=== PATIENT | male | born 1965 | race Caucasian/White ===

== ENCOUNTER → 2020-10-12 15:00 | Outpatient (CLI) | payer OTHER, SELFPAY ==
[2020-10-12 17:05] LABS: Uric Acid 7.6 mg/dL (3.5-8.5)
== END ==
PROVIDERS: Family Provider Family Medicine; PCP Family Medicine; Referring Provider Podiatrist; Visit Provider Podiatrist
DX: M79.672 Pain in left foot (principal)
CPT/HCPCS: 36415; 84550

== ENCOUNTER → 2021-01-18 10:12 | Outpatient (CLI) | payer OTHER, SELFPAY ==
--- NOTE | 2021-01-18 | DI.CT.S_ITS ---
PROCEDURE: CT UE RT WO CON INDICATIONS: Pain in right shoulder TECHNIQUE: Noncontrast 1-1.5 mm thick sections acquired from the acromioclavicular joint to the inferior scapula, with coronal and sagittal reformatting. COMPARISON: Reference is made to the MR SHOULDER WITHOUT CONTRAST, 03/04/2014, 8:35. FINDINGS: Image quality: Excellent. Bones: No acute, displaced fracture or dislocation. Moderate to advanced degenerative changes of the glenohumeral articulation with vacuum phenomena, joint space loss, and fibrocystic degenerative change. Large ridge osteophyte extends from the humeral head. The humeral head has a flattened contour. Small area of fibrocystic changes seen in the acromion. Soft tissues: No significant abnormality. IMPRESSION: 1. Right shoulder arthrosis as detailed above without acute osseous abnormality. Dictated by: Ariel Mcdaniel M.D. on 01/18/2021 at 10:35 Approved by: Ariel Mcdaniel M.D. on 01/18/2021 at 11:31
== END ==
PROVIDERS: Family Provider Family Medicine; PCP Family Medicine; Referring Provider Orthopaedic Surgery; Visit Provider Orthopaedic Surgery
DX: M25.511 Pain in right shoulder (principal); M19.011 Primary osteoarthritis, right shoulder
CPT/HCPCS: 73200

== ENCOUNTER → 2021-02-02 10:24 | Outpatient (CLI) | payer OTHER, SELFPAY ==
[2021-02-02 11:36] LABS: Alanine Aminotransferase 25 IU/L (<50); Albumin 4.3 g/dL (3.5-5.0); Albumin Globulin Ratio 1.4 (1.0-2.8); Alkaline Phosphatase 84 U/L (38-126); Aspartate Aminotransferase 21 IU/L (17-59); BUN Creatinine Ratio 17.5 (6-22); Bilirubin Total 0.3 mg/dL (0.2-1.3); Blood Urea Nitrogen 17 mg/dL (9-20); Calcium 9.3 mg/dL (8.4-10.2); Carbon Dioxide 24 mmol/L (22-32); Chloride 107 mmol/L (98-107); Estimated Glomerular Filt Rate > 60.0 mL/min (>60); Globulin 3.1 g/dL (1.7-4.1); Glucose 111 mg/dL (70-100); HEMOLYSIS < 15 (0-50); Potassium 4.3 mmol/L (3.4-5.1); Sodium 140 mmol/L (137-145); Total Protein 7.4 g/dL (6.3-8.2); Uric Acid 7.2 mg/dL (3.5-8.5)
== END ==
PROVIDERS: Family Provider Family Medicine; PCP Family Medicine; Referring Provider Podiatrist; Visit Provider Podiatrist
DX: Z01.812 Encounter for preprocedural laboratory examination (principal); E79.0 Hyperuricemia without signs of inflammatory arthritis and tophaceous disease
CPT/HCPCS: 36415; 80053; 84550

== ENCOUNTER 2021-04-22 13:04 | Emergency (ER) | payer OTHER, SELFPAY ==
[2021-04-22 13:30] VITALS: BP 165/127; PULSE 73; RESP 17; TEMP 36.1; O2SAT 97; BMI 34.4
[2021-04-22] MEDS: KETOROLAC 30 MG/ML VIAL IM (16:29)
[2021-04-22] MEDS: methocarbamoL 500 MG TABLET PO (16:29)
--- NOTE | 2021-04-22 17:23 | ED_ITS ---
HPI - Abdominal Pain <KARLA Rainey - Last Filed: 04/22/21 17:32> General Chief Complaint: Abdominal Pain Stated Complaint: 2 Abd Hernias, Severe Pain Time Seen by Provider: 04/22/21 15:42 Source: patient Mode of arrival: Ambulatory History of Present Illness HPI narrative: 55-year-old male presents to the emergency department for bilateral inguinal pain from 2 hernias which he reports was barely visualized on ultrasound yesterday. Patient reports that his hernias were difficult to find on ultrasound, he cannot palpate them, there was no bowel incarceration, necrosis, for perforation noted. Images were not available to review at this time, patient denies any fever, other abdominal pain, changes to his urination, difficulty urinating, difficulty having a bowel movement, nausea or vomiting. Patient is seeking pain control and hoping to ?have surgery sooner than later so he is trying to make it a big deal so he can have this approved.Patient denies any blood in his urine or stool. Related Data Home Medications Medication Instructions Recorded Confirmed BIOTIN/CA/CA PANTOTHENATE/CR 1 tab PO QDAY #0 02/28/11 04/27/21 (#CENTRUM) Vitamin E Succinate (#VITAMIN E) 100 iu PO QDAY #0 02/28/11 04/27/21 Previous Rx's Medication Instructions Recorded methylprednisolone 4 mg tablets in 21 tab PO SEE INSTRUCTIONS #1 pac 02/07/17 a dose pack ondansetron 4 mg disintegrating 4 mg PO BID PRN #10 tab 12/02/18 tablet methocarbamol 500 mg tablet See Rx Instructions PO Q6-8H PRN 04/17/21 #40 tab ketorolac 10 mg tablet 10 mg PO TID PRN 10 Days #20 tab 04/22/21 methocarbamol 500 mg tablet 500 mg PO Q8H PRN #20 tab 04/22/21 Allergies Allergy/AdvReac Type Severity Reaction Status Date / Time No Known Drug Allergies Allergy Verified 04/27/21 14:41 Review of Systems <KARLA Rainey - Last Filed: 04/22/21 17:32> Review of Systems Narrative: General: denies fever, chills Head/Neck: denies headache, neck pain Eyes: denies visual changes, eye pain Cardio: denies chest pain, palpitations Respiratory: denies shortness of breath, cough GI: endorses bilateral inguinal pain, denies abdominal pain, nausea, vomiting, or diarrhea : denies dysuria, hematuria MSK: denies joint pain, muscle weakness Skin: denies rash, itching Neuro: denies numbness, tingling Patient History <KARLA Rainey - Last Filed: 04/22/21 17:32> Social History Smoking Status: Never smoker Smoking Status: Never smoker alcohol intake frequency: a few times a week Substance Use Type: does not use Exam <KARLA Rainey - Last Filed: 04/22/21 17:32> Narrative Exam Narrative: Independently reviewed vitals signs and nursing notes. General: Awake, alert, nontoxic, no cardiorespiratory distress Head/Neck: Atraumatic, neck full range of motion Eyes: EOMI, conjunctiva normal Nose: nares patent, no rhinorrhea Mouth/Throat: moist mucus membranes Cardio: Regular rate and rhythm, no peripheral edema Respiratory: respirations unlabored without wheezing, stridor, or rales. No retractions. GI: Abdomen soft, nontender, no hernias palpated, nontender abdomen, low suspicion for peritonitis MSK: Moves all extremities, neurovascularly intact Skin: Normal capillary refill, no rash Neuro: Normal speech and cognition, normal gait Initial Vital Signs Initial Vital Signs: Vital Signs Temperature 97.0 F L 04/22/21 13:30 Pulse Rate 73 04/22/21 13:30 Respiratory Rate 17 04/22/21 13:30 Blood Pressure 165/127 H 04/22/21 13:30 Pulse Oximetry 97 04/22/21 13:30 <Norm Fenton DO - Last Filed: 04/29/21 04:57> Initial Vital Signs Initial Vital Signs: Vital Signs Temperature 97.0 F L 04/22/21 13:30 Pulse Rate 73 04/22/21 13:30 Respiratory Rate 17 04/22/21 13:30 Blood Pressure 165/127 H 04/22/21 13:30 Pulse Oximetry 97 04/22/21 13:30 Course <KARLA Rainey Last Filed: 04/22/21 17:32> Orders Ordered: Discontinued Medications Ketorolac Tromethamine (Ketorolac 30 Mg/Ml Vial) 30 mg IM NOW ONE Stop: 04/22/21 16:22 Last Admin: 04/22/21 16:29 Dose: 30 mg Documented by: AVNI Methocarbamol (Methocarbamol 500 Mg Tablet) 500 mg PO NOW ONE Stop: 04/22/21 16:22 Last Admin: 04/22/21 16:29 Dose: 500 mg Documented by: AVNI Vital Signs Vital signs: Vital Signs - 8 hr 04/22/21 13:30 Temperature 97.0 F L Pulse Rate 73 Respiratory Rate 17 Blood Pressure 165/127 H Pulse Oximetry 97 <Norm Fenton DO - Last Filed: 04/29/21 04:57> Orders Ordered: Discontinued Medications Ketorolac Tromethamine (Ketorolac 30 Mg/Ml Vial) 30 mg IM NOW ONE Stop: 04/22/21 16:22 Last Admin: 04/22/21 16:29 Dose: 30 mg Documented by: AVNI Methocarbamol (Methocarbamol 500 Mg Tablet) 500 mg PO NOW ONE Stop: 04/22/21 16:22 Last Admin: 04/22/21 16:29 Dose: 500 mg Documented by: AVNI Vital Signs Vital signs: Vital Signs - 8 hr 04/22/21 13:30 Temperature 97.0 F L Pulse Rate 73 Respiratory Rate 17 Blood Pressure 165/127 H Pulse Oximetry 97 MDM - Abdominal Pain <KARLA Rainey - Last Filed: 04/22/21 17:32> MDM Narrative Medical decision making narrative: 55-year-old male presents to the emergency department complaining of pain from his right shoulder from months ago, and pain in his abdomen from to [place] hernias which were found on ultrasound yesterday without records available to review. There are no palpable hernias, very low suspicion for any incarcerated bowel, vessel, peritonitis, no lymphadenopathy, nontender abdominal exam, without any color change or signs of infection. Patient was instructed to use an abdominal binder and he reports that it has been helpful to have snug pants on as this is more comfortable. Patient is nontoxic appearing, recommended to follow-up with general surgery as already referred. Informed that due to the COVID restrictions he may not be able to have surgery if this is indicated at this time. Patient was also informed to have his records sent over from where he had this ultrasound yesterday. Patient tells me that he is trying to accelerate his claim so that he can get treated sooner so that is why he came to the emergency department to make it seem like it was a big deal because of his pain. Patient is appropriate and amenable to discharge home. Vital signs are stable on repeat examination is unremarkable. Patient has been informed of results. Patient has been given strict return to ER precautions for any new or worsening symptoms. Patient understands to follow up closely with outpatient providers as instructed. Patient understands plan and agrees to discharge home. All questions and concerns answered at this time. Discharge Plan Departure Patient Disposition: Home Clinical Impression: Inguinal hernia Qualifiers: Obstruction and gangrene presence: without obstruction or gangrene Laterality: bilateral Recurrence: not specified as recurrent Qualified Code(s): K40.20 - Bilateral inguinal hernia, without obstruction or gangrene, not specified as recurrent Instructions: Groin Hernia -- Adult Activity Restrictions/Additional Instructions: *You have been diagnosed with inguinal hernias visualized on ultrasound. I have referred you to General surgery again for an evaluation of these. For your shoulder and for your abdomen, please use the Robaxin as needed for muscle spasm and crampy feeling, and the anti-inflammatories for general soreness. Please try wearing an abdominal binder to help with the pain exacerbations. 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 I hope that you start feeling better soon, sorry for your injury and for your pain. Please follow-up with your primary care provider about this, they will help you with the documentation needed to advance your surgery request. *What to do: *Please continue to take your regular medications as directed. [ x] New medication prescriptions sent to your pharmacy: [ ] [ ] New medication written as a paper prescription [ ] No new medications given *Please follow up with your primary care provider in 2-3 days, call for an appointment. Let them know you were seen in the Emergency Department and that we ask that you be seen in follow up. We will electronically transmit a record of today's note if your PCP is in our system *If you do not have a primary care provider please contact [facility] Resource line at [phone]. They will ask some questions about your medical history and help get you set up with a doctor in the community. *Return to Emergency Department if you should have any new, worsening or concerning symptoms, such as [fever greater than 101F, chills, worsening pain, persistent vomiting or other bothersome symptoms] Prescriptions: New methocarbamol 500 mg tablet 500 mg PO Q8H PRN (Reason: muscle spasm) Qty: 20 0RF ketorolac 10 mg tablet 10 mg PO TID PRN (Reason: pain) 10 Days Qty: 20 0RF No Action ondansetron 4 mg tablet,disintegrating 4 mg PO BID PRN (Reason: nausea and vomiting) Qty: 10 0RF methocarbamol 500 mg tablet See Rx Instructions PO Q6-8H PRN (Reason: muscle spasm) Qty: 40 0RF Rx Instructions: 2-3 tablets PO every 6-8 hours PRN; BIOTIN/CA/CA PANTOTHENATE/CR (#CENTRUM) 1 tab PO QDAY Qty: 0 0RF Vitamin E Succinate (#VITAMIN E) 100 iu PO QDAY Qty: 0 0RF methylprednisolone 4 MG tablets,dose pack 21 tab PO SEE INSTRUCTIONS Qty: 1 0RF Referrals: Fabian Hayden MD [Primary Care Provider] - Valente Tee MD [Physician] - 5-7 days <Norm Fenton DO - Last Filed: 04/29/21 04:57> [facility] I was immediately available in the department for consultation. This documentation has been reviewed and I agree with assessment and plan. Supervised by Norm Fenton DO
== END 2021-04-22 16:38 | disposition home or self-care (01) ==
PROVIDERS: Emergency Provider Nurse Practitioner Critical Care Medicine; Family Provider Family Medicine; PCP Family Medicine
DX: K40.20 Bilateral inguinal hernia, without obstruction or gangrene, not specified as recurrent (principal)
CPT/HCPCS: 96372; 99283; J1885

== ENCOUNTER → 2022-07-19 15:50 | Outpatient (CLI) | payer OTHER, SELFPAY ==
[2022-07-19 16:47] LABS: Influenza A - CEPHEID Flu A NEGATIVE (NEGATIVE); Influenza B - CEPHEID Flu B NEGATIVE (NEGATIVE); Respiratory Syncytial Virus Negative (Negative)
[2022-07-19 16:59] LABS: COVID-19 CEPHEID 4-PLEX PCR Negative (Negative)
== END ==
PROVIDERS: Family Provider Family Medicine; PCP Family Medicine; Visit Provider Physician Assistant
DX: N39.0 Urinary tract infection, site not specified (principal); J06.9 Acute upper respiratory infection, unspecified
CPT/HCPCS: 0241U; 87086

== ENCOUNTER 2022-07-19 16:32 | Emergency (ER) | payer OTHER, SELFPAY ==
[2022-07-19] VITALS (11 sets, daily range): BP systolic 100–159; BP diastolic 61–92; PULSE 65–77; RESP 15–18; TEMP 37.2–39.5; O2SAT 94–98; BMI 34.2
[2022-07-19] MEDS: ACETAMINOPHEN 325 MG TABLET 975 MG PO (16:42)
[2022-07-19] MEDS: SODIUM CHLORIDE 0.9% 868 ML IV (17:20)
[2022-07-19 17:27] LABS: Bacteria Urine Occasional (0-1); Culture Indicated Urine Cult Not Indicated; RBC Urine 10-30/HPF (0-5/HPF); WBC Urine 0-1/HPF (0-5/HPF)
[2022-07-19] MEDS: KETOROLAC 30 MG/ML VIAL 15 MG IV (17:40)
[2022-07-19 17:42] LABS: Add Manual Diff / Slide Review NO; Basophils Absolute Auto 0 /uL (0-100); Basophils Percent Auto 0.3 % (0-2); Eosinophils Absolute Auto 100 /uL (0-450); Eosinophils Percent Auto 0.7 % (2-4); Hemoglobin 15.5 g/dL (13.5-17.5); Lymphocytes Absolute Auto 1400 /uL (1100-4500); Lymphocytes Percent Auto 10.7 % (25-40); Mean Corpuscular HGB Conc 35.2 % (30-36); Mean Corpuscular Hemoglobin 31.7 PG (26-34); Mean Corpuscular Volume 89.9 fL (80-100); Monocytes Absolute Auto 1100 /uL (0-900); Monocytes Percent Auto 8.7 % (3-14); Neutrophils Absolute Auto 10100 /uL (1500-7000); Neutrophils Percent Auto 79.6 % (50-75); Platelet Count 130 X10^3/uL (150-400); Red Blood Cell Count 4.89 X10^6/uL (4.5-5.9); Red Cell Distribution Width 13.6 % (11.6-14.8); White Blood Cell Count 12.7 X10^3/uL (4.5-11.0)
[2022-07-19 17:53] LABS: Alanine Aminotransferase 27 IU/L (<50); Albumin 4.4 g/dL (3.5-5.0); Albumin Globulin Ratio 1.1 (1.0-2.8); Alkaline Phosphatase 64 U/L (38-126); Aspartate Aminotransferase 26 IU/L (17-59); BUN Creatinine Ratio 15.2 (6-22); Blood Urea Nitrogen 17 mg/dL (9-20); Calcium 9.2 mg/dL (8.4-10.2); Carbon Dioxide 20 mmol/L (22-32); Chloride 101 mmol/L (98-107); Estimated Glomerular Filt Rate > 60 mL/min (>60); Glucose 130 mg/dL (70-100); HEMOLYSIS 17 (0-50); Potassium 3.9 mmol/L (3.4-5.1); Sodium 132 mmol/L (137-145); Total Protein 8.4 g/dL (6.3-8.2)
--- NOTE | 2022-07-19 18:19 | DI.CT.S_ITS ---
PROCEDURE: CT ABDOMEN PELVIS W CON INDICATIONS: ?hernia TECHNIQUE: After the administration of intravenous contrast, axial sections acquired from the lung bases to the pubic symphysis. Coronal and sagittal reformats were performed. For radiation dose reduction, the following was used: automated exposure control, adjustment of mA and/or kV according to patient size. COMPARISON: [facility] Ultrasound, US, US HERNIA INGUINAL, 04/21/2021, 15:20.On CT FINDINGS: Image quality: Excellent. Lung bases: Small consolidative opacity is seen at the medial basilar segment of the right lower lobe. Heart: No significant findings. ABDOMEN: Liver: Unremarkable. Gallbladder: Unremarkable. Biliary ducts: Unremarkable. Pancreas: Unremarkable. Spleen: Unremarkable. Adrenal Glands: Unremarkable. Kidneys and Ureters: Simple appearing cysts are seen in both kidneys. Stomach and Bowel: Multiple diverticula are seen in the colon without signs of acute diverticulitis. Small bowel loops and stomach are unremarkable. Appendix is not visualized, but there are no signs of acute appendicitis. Peritoneum: No abnormal intraperitoneal fluid. No free air. Ventral Wall: Small fat containing periumbilical hernia. Abdominal Nodes: No retroperitoneal or mesenteric adenopathy by size criteria. Vessels: Aorta and inferior vena cava are normal in size. PELVIS: Pelvic Organs: Unremarkable. Bladder: Unremarkable. Pelvic Nodes: No enlarged lymph nodes. Miscellaneous: Previously seen inguinal hernias are not redemonstrated. Bones: Degenerative changes are seen at the lumbosacral junction. IMPRESSION: 1. No acute abnormality is seen in the abdomen or pelvis. No inguinal hernia or signs of bowel obstruction. 2. Small opacity in the right lung base is suspicious for pneumonia, versus aspiration or atelectasis. 3. Colonic diverticulosis without signs of acute diverticulitis. Approved by: Min Glaser M.D. on 07/19/2022 at 19:28
--- NOTE | 2022-07-19 18:21 | DI.RAD.S_ITS ---
PROCEDURE: XR CHEST 2V INDICATIONS: sepsis TECHNIQUE: 2 views of the chest were acquired. COMPARISON: None. FINDINGS: Surgical changes and devices: None. Lungs and pleura: Triangular opacity is seen at the medial anterior right lung base. No pleural effusions or pneumothorax. Mediastinum: Mediastinal contours are normal. Heart size is normal. Bones and chest wall: No suspicious bony abnormalities. Soft tissues appear unremarkable. IMPRESSION: Right basilar opacity is suspicious for pneumonia. Approved by: Min Glaser M.D. on 07/19/2022 at 19:21
[2022-07-19] MEDS: PIPERACILLIN/TAZO 4.5 GM in SODIUM CHLORIDE 0.9% 100 ML IV (18:38)
--- NOTE | 2022-07-19 18:43 | ED.MALEGU ---
HPI - Male Genitourinary <Gray Grace PA-C - Last Filed: 07/19/22 20:27> General Chief complaint: Urogenital-Male Stated complaint: sent by [facility] for blood in urine Time Seen by Provider: 07/19/22 17:22 Source: patient Mode of arrival: Ambulatory History of Present Illness HPI Narrative: 57-year-old male with past medical history inguinal hernia presents to the ED for 4 days of fever, abdominal pain, diarrhea, hematuria. Patient states his symptoms started 4 days ago with fevers, all-over body aches, diarrhea. Patient states he is had hematuria for 2 days. Patient states that he has not had more than 1 episode of diarrhea a day. Also endorses flatulence. Patient states that he has been coughing, which has caused some discomfort in the area of his hernia on the right side. Patient is also complaining of some left testicular discomfort. Patient denies chest pain, shortness of breath, rhinorrhea, sore throat, vomiting, dysuria, lightheadedness, dizziness, syncope. Patient states he was scheduled to have hernia surgery a couple of years ago during [facility], but it was canceled due to all elective surgeries being canceled. Related Data Home Medications Medication Instructions Recorded Confirmed BIOTIN/CA/CA PANTOTHENATE/CR 1 tab PO QDAY ##0 02/28/11 04/27/21 (#CENTRUM) Vitamin E Succinate (#VITAMIN E) 100 iu PO QDAY ##0 02/28/11 04/27/21 Previous Rx's Medication Instructions Recorded methylprednisolone 4 mg tablets in 21 tab PO SEE INSTRUCTIONS ##1 02/07/17 a dose pack ondansetron 4 mg disintegrating 4 mg PO BID PRN nausea and 12/02/18 tablet vomiting #10 tabs methocarbamol 500 mg tablet See Rx Instructions PO Q6-8H PRN 04/17/21 muscle spasm #40 tabs methocarbamol 500 mg tablet 500 mg PO Q8H PRN muscle spasm #20 04/22/21 tabs azithromycin 250 mg tablet See Rx Instructions PO .COMPLEX #6 07/19/22 (Zithromax Z-Lele) tabs Allergies Allergy/AdvReac Type Severity Reaction Status Date / Time No Known Drug Allergies Allergy Verified 07/19/22 16:35 Review of Systems <Gray Grace PA-C - Last Filed: 07/19/22 20:27> Review of Systems ROS Unobtainable: All systems reviewed & are unremarkable except as noted in HPI and below Constitutional Constitutional: Reports body ache(s), Denies chills, Reports fatigue, Reports fever(s), Denies frequent falls, Denies lethargy and Denies weakness Eyes Eyes: Denies change in vision, Denies eye discharge, Denies irritation and Denies loss of vision ENT Ears, Nose, Mouth, and Throat: Denies change in voice, Denies dizziness, Denies neck pain, Denies sore throat and Denies throat swelling Cardiovascular Cardiovascular: Denies chest pain, Denies irregular heart rhythm, Denies lightheadedness, Denies palpitations, Denies dyspnea, Denies dyspnea on exertion and Denies orthopnea Respiratory Respiratory: Reports cough, Denies dyspnea, Denies dyspnea on exertion and Denies wheezing Gastrointestinal Gastrointestinal: Reports abdominal pain, Denies change in bowel habits, Reports diarrhea, Reports nausea and Denies vomiting Genitourinary Genitourinary: Reports hematuria, Denies flank pain, Denies urinary incontinence and Denies urinary urgency Musculoskeletal Musculoskeletal: Denies back pain, Denies muscle weakness, Denies neck pain, Denies numbness and Denies tingling Integumentary/Breasts Skin/Breast: Denies pruritus, Denies erythema, Denies rash and Denies wounds Neurologic Neurologic: Denies behavioral changes, Denies confusion, Denies dizziness, Denies frequent falls, Denies loss of vision, Denies numbness, Denies tingling and Denies weakness Psychiatric Psychiatric: Denies anxiety, Denies behavioral changes, Denies confusion, Denies depression, Denies homicidal ideation and Denies suicidal ideation Endocrine Endocrine: Reports fatigue, Denies flushing and Denies palpitations Hematologic/Lymphatic Hematologic/Lymphatic: Denies easy bruising Allergic/Immunologic Allergic/Immunologic: Denies urticaria, Denies throat swelling and Denies wheezing Patient History <Gray Grace PA-C - Last Filed: 07/19/22 20:27> Medical History History of hepatitis HTN (hypertension) Surgical History Hx of appendectomy (1983) Social History household members: spouse Smoking Status: Former smoker alcohol intake: current Smoking Status: Former smoker alcohol intake frequency: a few times a month Substance Use Type: does not use Exam <Gray Grace PA-C - Last Filed: 07/19/22 20:27> Narrative Exam Narrative: Const General:?cooperative, healthy appearing and comfortable HENMT Head:?normal to inspection Ears:?hearing grossly normal bilaterally Nose:?external nose normal Face and sinus:?normal facial exam and sinuses nontender Mouth:?oral mucosae normal Throat:?posterior oropharynx normal Eyes General:?appearance normal, both eyes and all related structures Neck Neck:?normal visual inspection and no lymphadenopathy noted Resp Effort & Inspection:?normal respiratory effort Auscultation:?clear to auscultation bilaterally Cardio Rate:?regular rate Rhythm:?regular rhythm GI Abdomen is soft, nondistended, nontender to palpation. Normal on exam Neuro General:?patient alert, patient awake and patient oriented x3 Initial Vital Signs Initial Vital Signs: Vital Signs Temperature 103.1 F H 07/19/22 16:35 Pulse Rate 74 07/19/22 16:35 Respiratory Rate 15 07/19/22 16:35 Blood Pressure 159/92 H 07/19/22 16:35 Pulse Oximetry 95 07/19/22 16:35 Oxygen Delivery Method Room Air 07/19/22 16:35 <Yun Alonso MD - Last Filed: 07/20/22 01:46> Initial Vital Signs Initial Vital Signs: Vital Signs Temperature 103.1 F H 07/19/22 16:35 Pulse Rate 74 07/19/22 16:35 Respiratory Rate 15 07/19/22 16:35 Blood Pressure 159/92 H 07/19/22 16:35 Pulse Oximetry 95 07/19/22 16:35 Oxygen Delivery Method Room Air 07/19/22 16:35 Course <Gray Grace PA-C - Last Filed: 07/19/22 20:27> Orders Ordered: ED Orders 07/19/22 17:32 CBC Auto Diff [Complete Blood Count AUTO DIFF] Stat CMP [Comprehensive Metabolic Panel] Stat Lactate (Lactic Acid) Stat PT [Prothrombin Time INR] Stat PTT Partial Thromboplastin [place] Stat Procalcitonin Stat 07/19/22 17:50 Blood Culture Stat 07/19/22 18:19 CT abdomen pelvis w con Stat 07/19/22 18:21 CXR [XR chest 2V] Stat 07/19/22 18:42 Covid-19 + FLU A/B + RSV - PCR Stat Discontinued Medications Acetaminophen (Acetaminophen 325 Mg Tablet) 975 mg PO NOW ONE Stop: 07/19/22 16:40 Last Admin: 07/19/22 16:42 Dose: 975 mg Documented By: VINICIO Sodium Chloride (Normal Saline 0.9%) 1,000 mls @ 1,000 mls/hr IV BOLUS ONE Stop: 07/19/22 18:21 Last Admin: 07/19/22 18:21 Dose: Not Given Documented By: EDIE Piperacillin Sod/Tazobactam (Sod 4.5 gm/ Sodium Chloride) 100 mls @ 200 mls/hr IV NOW ONE Stop: 07/19/22 18:15 Last Infusion: 07/19/22 19:13 Dose: 0 mls/hr Documented By: Admin: 07/19/22 18:38 Dose: 200 mls/hr Documented By: EDIE Sodium Chloride (Normal Saline 0.9%) 2,604 mls @ 868 mls/hr 30 ml/kg infuse over 3 hr (2604 ml) IV NOW ONE Stop: 07/19/22 21:17 Last Infusion: 07/19/22 20:29 Dose: 0 mls/hr Documented By: Admin: 07/19/22 17:20 Dose: 868 mls/hr Documented By: EDIE Ibuprofen (Ibuprofen 400 Mg Tablet) 800 mg PO NOW ONE Stop: 07/19/22 16:40 Last Admin: 07/19/22 17:40 Dose: Not Given Documented By: CTS Ketorolac Tromethamine (Ketorolac 30 Mg/Ml Vial) 15 mg IV NOW ONE Stop: 07/19/22 17:23 Last Admin: 07/19/22 17:40 Dose: 15 mg Documented By: CTS Vital Signs Vital signs: Vital Signs - 8 hr 07/19/22 18:00 07/19/22 19:02 07/19/22 18:43 Temperature 99 F Pulse Rate 74 65 Respiratory Rate Blood Pressure Pulse Oximetry 96 98 07/19/22 18:44 07/19/22 18:44 07/19/22 19:00 Temperature Pulse Rate 67 Respiratory Rate Blood Pressure 100/61 108/68 Pulse Oximetry 98 07/19/22 19:00 07/19/22 19:30 07/19/22 19:30 Temperature Pulse Rate 65 66 Respiratory Rate Blood Pressure 107/76 Pulse Oximetry 96 95 07/19/22 20:00 07/19/22 20:00 Temperature Pulse Rate 71 Respiratory Rate 18 Blood Pressure 107/70 Pulse Oximetry 94 <Yun Alonso MD - Last Filed: 07/20/22 01:46> Orders Ordered: ED Orders 07/19/22 17:32 CBC Auto Diff [Complete Blood Count AUTO DIFF] Stat CMP [Comprehensive Metabolic Panel] Stat Lactate (Lactic Acid) Stat PT [Prothrombin Time INR] Stat PTT Partial Thromboplastin [place] Stat Procalcitonin Stat 07/19/22 17:50 Blood Culture Stat 07/19/22 18:19 CT abdomen pelvis w con Stat 07/19/22 18:21 CXR [XR chest 2V] Stat 07/19/22 18:42 Covid-19 + FLU A/B + RSV - PCR Stat Discontinued Medications Acetaminophen (Acetaminophen 325 Mg Tablet) 975 mg PO NOW ONE Stop: 07/19/22 16:40 Last Admin: 07/19/22 16:42 Dose: 975 mg Documented By: VINICIO Sodium Chloride (Normal Saline 0.9%) 1,000 mls @ 1,000 mls/hr IV BOLUS ONE Stop: 07/19/22 18:21 Last Admin: 07/19/22 18:21 Dose: Not Given Documented By: EDIE Piperacillin Sod/Tazobactam (Sod 4.5 gm/ Sodium Chloride) 100 mls @ 200 mls/hr IV NOW ONE Stop: 07/19/22 18:15 Last Infusion: 07/19/22 19:13 Dose: 0 mls/hr Documented By: Admin: 07/19/22 18:38 Dose: 200 mls/hr Documented By: EDIE Sodium Chloride (Normal Saline 0.9%) 2,604 mls @ 868 mls/hr 30 ml/kg infuse over 3 hr (2604 ml) IV NOW ONE Stop: 07/19/22 21:17 Last Infusion: 07/19/22 20:29 Dose: 0 mls/hr Documented By: Admin: 07/19/22 17:20 Dose: 868 mls/hr Documented By: EDIE Ibuprofen (Ibuprofen 400 Mg Tablet) 800 mg PO NOW ONE Stop: 07/19/22 16:40 Last Admin: 07/19/22 17:40 Dose: Not Given Documented By: EDIE Ketorolac Tromethamine (Ketorolac 30 Mg/Ml Vial) 15 mg IV NOW ONE Stop: 07/19/22 17:23 Last Admin: 07/19/22 17:40 Dose: 15 mg Documented By: EDIE Vital Signs Vital signs: Vital Signs - 8 hr 07/19/22 18:00 07/19/22 19:02 07/19/22 18:43 Temperature 99 F Pulse Rate 74 65 Respiratory Rate Blood Pressure Pulse Oximetry 96 98 07/19/22 18:44 07/19/22 18:44 07/19/22 19:00 Temperature Pulse Rate 67 Respiratory Rate Blood Pressure 100/61 108/68 Pulse Oximetry 98 07/19/22 19:00 07/19/22 19:30 07/19/22 19:30 Temperature Pulse Rate 65 66 Respiratory Rate Blood Pressure 107/76 Pulse Oximetry 96 95 07/19/22 20:00 07/19/22 20:00 Temperature Pulse Rate 71 Respiratory Rate 18 Blood Pressure 107/70 Pulse Oximetry 94 MDM - Male Genitourinary <Gray Grace PA-C - Last Filed: 07/19/22 20:27> Lab Data 07/19/22 17:32 07/19/22 17:32 Labs: Lab Results 07/19/22 07/19/22 07/19/22 Range/Units 16:12 17:32 17:32 WBC 12.7 H (4.5-11.0) X10^3/uL RBC 4.89 (4.5-5.9) X10^6/uL Hgb 15.5 (13.5-17.5) g/dL Hct 44.0 (41-53) % MCV 89.9 (80-100) fL MCH 31.7 (26-34) PG MCHC 35.2 (30-36) % RDW 13.6 (11.6-14.8) % Plt Count 130 L (150-400) X10^3/uL Neut % (Auto) 79.6 H (50-75) % Lymph % (Auto) 10.7 L (25-40) % [place] % (Auto) 8.7 (3-14) % Eos % (Auto) 0.7 L (2-4) % Baso % (Auto) 0.3 (0-2) % Neut # (Auto) 30439 H (6954-4460) /uL Lymph # (Auto) 1400 (4071-4952) /uL [place] # (Auto) 1100 H (0-900) /uL Eos # (Auto) 100 (0-450) /uL Baso # (Auto) 0 (0-100) /uL PT (10.1-12.7) SECONDS INR (0.9-1.3) APTT (26-36) SECONDS Sodium 132 L (137-145) mmol/L Potassium 3.9 (3.4-5.1) mmol/L Chloride 101 (98-107) mmol/L Carbon Dioxide 20 L (22-32) mmol/L BUN 17 (9-20) mg/dL Creatinine 1.12 (0.66-1.25) mg/dL Estimated GFR > 60 (>60) mL/min BUN/Creatinine Ratio 15.2 (6-22) Glucose 130 H (70-100) mg/dL Lactate (0.7-2.1) mmol/L Calcium 9.2 (8.4-10.2) mg/dL Total Bilirubin 1.0 (0.2-1.3) mg/dL AST 26 (17-59) IU/L ALT 27 (<50) IU/L Alkaline Phosphatase 64 (38-126) U/L Total Protein 8.4 H (6.3-8.2) g/dL Albumin 4.4 (3.5-5.0) g/dL Globulin 4.0 (1.7-4.1) g/dL Albumin/Globulin Ratio 1.1 (1.0-2.8) Procalcitonin (<0.5) ng/mL Urine RBC 10-30/hpf H (0-5/HPF) Urine WBC 0-1/hpf (0-5/HPF) Urine Bacteria Occasional (0-1) (None) Ur Culture Indicated? Cult not indicated SARS-CoV-2 (PCR) (Negative) Influenza A (RT-PCR) (NEGATIVE) Influenza B (RT-PCR) (NEGATIVE) RSV (PCR) (Negative) 04/08/0707/19/22 07/19/22 Range/Units 17:32 17:32 17:32 WBC (4.5-11.0) X10^3/uL RBC (4.5-5.9) X10^6/uL Hgb (13.5-17.5) g/dL Hct (41-53) % MCV (80-100) fL MCH (26-34) PG MCHC (30-36) % RDW (11.6-14.8) % Plt Count (150-400) X10^3/uL Neut % (Auto) (50-75) % Lymph % (Auto) (25-40) % [place] % (Auto) (3-14) % Eos % (Auto) (2-4) % Baso % (Auto) (0-2) % Neut # (Auto) (3601-9671) /uL Lymph # (Auto) (5475-0789) /uL [place] # (Auto) (0-900) /uL Eos # (Auto) (0-450) /uL Baso # (Auto) (0-100) /uL PT 14.9 H (10.1-12.7) SECONDS INR 1.3 (0.9-1.3) APTT 29 (26-36) SECONDS Sodium (137-145) mmol/L Potassium (3.4-5.1) mmol/L Chloride (98-107) mmol/L Carbon Dioxide (22-32) mmol/L BUN (9-20) mg/dL Creatinine (0.66-1.25) mg/dL Estimated GFR (>60) mL/min BUN/Creatinine Ratio (6-22) Glucose (70-100) mg/dL Lactate 1.0 (0.7-2.1) mmol/L Calcium (8.4-10.2) mg/dL Total Bilirubin (0.2-1.3) mg/dL AST (17-59) IU/L ALT (<50) IU/L Alkaline Phosphatase (38-126) U/L Total Protein (6.3-8.2) g/dL Albumin (3.5-5.0) g/dL Globulin (1.7-4.1) g/dL Albumin/Globulin Ratio (1.0-2.8) Procalcitonin 0.08 (<0.5) ng/mL Urine RBC (0-5/HPF) Urine WBC (0-5/HPF) Urine Bacteria (None) Ur Culture Indicated? SARS-CoV-2 (PCR) (Negative) Influenza A (RT-PCR) (NEGATIVE) Influenza B (RT-PCR) (NEGATIVE) RSV (PCR) (Negative) 07/19/22 Range/Units 18:42 WBC (4.5-11.0) X10^3/uL RBC (4.5-5.9) X10^6/uL Hgb (13.5-17.5) g/dL Hct (41-53) % MCV (80-100) fL MCH (26-34) PG MCHC (30-36) % RDW (11.6-14.8) % Plt Count (150-400) X10^3/uL Neut % (Auto) (50-75) % Lymph % (Auto) (25-40) % [place] % (Auto) (3-14) % Eos % (Auto) (2-4) % Baso % (Auto) (0-2) % Neut # (Auto) (4828-9528) /uL Lymph # (Auto) (2521-7824) /uL [place] # (Auto) (0-900) /uL Eos # (Auto) (0-450) /uL Baso # (Auto) (0-100) /uL PT (10.1-12.7) SECONDS INR (0.9-1.3) APTT (26-36) SECONDS Sodium (137-145) mmol/L Potassium (3.4-5.1) mmol/L Chloride (98-107) mmol/L Carbon Dioxide (22-32) mmol/L BUN (9-20) mg/dL Creatinine (0.66-1.25) mg/dL Estimated GFR (>60) mL/min BUN/Creatinine Ratio (6-22) Glucose (70-100) mg/dL Lactate (0.7-2.1) mmol/L Calcium (8.4-10.2) mg/dL Total Bilirubin (0.2-1.3) mg/dL AST (17-59) IU/L ALT (<50) IU/L Alkaline Phosphatase (38-126) U/L Total Protein (6.3-8.2) g/dL Albumin (3.5-5.0) g/dL Globulin (1.7-4.1) g/dL Albumin/Globulin Ratio (1.0-2.8) Procalcitonin (<0.5) ng/mL Urine RBC (0-5/HPF) Urine WBC (0-5/HPF) Urine Bacteria (None) Ur Culture Indicated? SARS-CoV-2 (PCR) Negative (Negative) Influenza A (RT-PCR) Flu a negative (NEGATIVE) Influenza B (RT-PCR) Flu b negative (NEGATIVE) RSV (PCR) Negative (Negative) MDM Narrative Medical decision making narrative: 57-year-old male with past medical history inguinal hernia presents to the ED for 4 days of fever, abdominal pain, diarrhea, hematuria. Concern for sepsis versus viral URI versus incarcerated/strangulated hernia versus reducible hernia versus pneumonia versus other. Will obtain sepsis workup. Patient is sirs positive with WBC 12.7, temperature 102.7? F. Urinalysis negative for UTI, positive for hematuria. Source is as such unidentified this point, pending remaining workup. Initiated sepsis protocol with sepsis fluids, blood cultures, Zosyn. Will reassess. Chest x-ray shows right basilar opacity, suspicious for pneumonia. Remaining workup was largely unremarkable. CURB 65 score 0. Patient appears well. Discussed patient with hospitalist Dr. Kendall, consensus was to discharge patient home on p.o. antibiotics. Discussed with patient. Patient has a appointment with his doctor for tomorrow, and agrees to follow-up regarding the hematuria as well as monitoring the pneumonia. ED return precautions were also discussed with patient. Patient verbalized understanding. Medical records reviewed: yes. <Yun Alonso MD - Last Filed: 07/20/22 01:46> Lab Data Labs: Lab Results 07/19/22 07/19/22 07/19/22 Range/Units 16:12 17:32 17:32 WBC 12.7 H (4.5-11.0) X10^3/uL RBC 4.89 (4.5-5.9) X10^6/uL Hgb 15.5 (13.5-17.5) g/dL Hct 44.0 (41-53) % MCV 89.9 (80-100) fL MCH 31.7 (26-34) PG MCHC 35.2 (30-36) % RDW 13.6 (11.6-14.8) % Plt Count 130 L (150-400) X10^3/uL Neut % (Auto) 79.6 H (50-75) % Lymph % (Auto) 10.7 L (25-40) % [place] % (Auto) 8.7 (3-14) % Eos % (Auto) 0.7 L (2-4) % Baso % (Auto) 0.3 (0-2) % Neut # (Auto) 26109 H (4407-3444) /uL Lymph # (Auto) 1400 (1601-3498) /uL [place] # (Auto) 1100 H (0-900) /uL Eos # (Auto) 100 (0-450) /uL Baso # (Auto) 0 (0-100) /uL PT (10.1-12.7) SECONDS INR (0.9-1.3) APTT (26-36) SECONDS Sodium 132 L (137-145) mmol/L Potassium 3.9 (3.4-5.1) mmol/L Chloride 101 (98-107) mmol/L Carbon Dioxide 20 L (22-32) mmol/L BUN 17 (9-20) mg/dL Creatinine 1.12 (0.66-1.25) mg/dL Estimated GFR > 60 (>60) mL/min BUN/Creatinine Ratio 15.2 (6-22) Glucose 130 H (70-100) mg/dL Lactate (0.7-2.1) mmol/L Calcium 9.2 (8.4-10.2) mg/dL Total Bilirubin 1.0 (0.2-1.3) mg/dL AST 26 (17-59) IU/L ALT 27 (<50) IU/L Alkaline Phosphatase 64 (38-126) U/L Total Protein 8.4 H (6.3-8.2) g/dL Albumin 4.4 (3.5-5.0) g/dL Globulin 4.0 (1.7-4.1) g/dL Albumin/Globulin Ratio 1.1 (1.0-2.8) Procalcitonin (<0.5) ng/mL Urine RBC 10-30/hpf H (0-5/HPF) Urine WBC 0-1/hpf (0-5/HPF) Urine Bacteria Occasional (0-1) (None) Ur Culture Indicated? Cult not indicated SARS-CoV-2 (PCR) (Negative) Influenza A (RT-PCR) (NEGATIVE) Influenza B (RT-PCR) (NEGATIVE) RSV (PCR) (Negative) 07/19/22 07/19/22 07/19/22 Range/Units 17:32 17:32 17:32 WBC (4.5-11.0) X10^3/uL RBC (4.5-5.9) X10^6/uL Hgb (13.5-17.5) g/dL Hct (41-53) % MCV (80-100) fL MCH (26-34) PG MCHC (30-36) % RDW (11.6-14.8) % Plt Count (150-400) X10^3/uL Neut % (Auto) (50-75) % Lymph % (Auto) (25-40) % [place] % (Auto) (3-14) % Eos % (Auto) (2-4) % Baso % (Auto) (0-2) % Neut # (Auto) (4164-4148) /uL Lymph # (Auto) (2604-2266) /uL [place] # (Auto) (0-900) /uL Eos # (Auto) (0-450) /uL Baso # (Auto) (0-100) /uL PT 14.9 H (10.1-12.7) SECONDS INR 1.3 (0.9-1.3) APTT 29 (26-36) SECONDS Sodium (137-145) mmol/L Potassium (3.4-5.1) mmol/L Chloride (98-107) mmol/L Carbon Dioxide (22-32) mmol/L BUN (9-20) mg/dL Creatinine (0.66-1.25) mg/dL Estimated GFR (>60) mL/min BUN/Creatinine Ratio (6-22) Glucose (70-100) mg/dL Lactate 1.0 (0.7-2.1) mmol/L Calcium (8.4-10.2) mg/dL Total Bilirubin (0.2-1.3) mg/dL AST (17-59) IU/L ALT (<50) IU/L Alkaline Phosphatase (38-126) U/L Total Protein (6.3-8.2) g/dL Albumin (3.5-5.0) g/dL Globulin (1.7-4.1) g/dL Albumin/Globulin Ratio (1.0-2.8) Procalcitonin 0.08 (<0.5) ng/mL Urine RBC (0-5/HPF) Urine WBC (0-5/HPF) Urine Bacteria (None) Ur Culture Indicated? SARS-CoV-2 (PCR) (Negative) Influenza A (RT-PCR) (NEGATIVE) Influenza B (RT-PCR) (NEGATIVE) RSV (PCR) (Negative) 07/19/22 Range/Units 18:42 WBC (4.5-11.0) X10^3/uL RBC (4.5-5.9) X10^6/uL Hgb (13.5-17.5) g/dL Hct (41-53) % MCV (80-100) fL MCH (26-34) PG MCHC (30-36) % RDW (11.6-14.8) % Plt Count (150-400) X10^3/uL Neut % (Auto) (50-75) % Lymph % (Auto) (25-40) % [place] % (Auto) (3-14) % Eos % (Auto) (2-4) % Baso % (Auto) (0-2) % Neut # (Auto) (7505-1124) /uL Lymph # (Auto) (0682-7446) /uL [place] # (Auto) (0-900) /uL Eos # (Auto) (0-450) /uL Baso # (Auto) (0-100) /uL PT (10.1-12.7) SECONDS INR (0.9-1.3) APTT (26-36) SECONDS Sodium (137-145) mmol/L Potassium (3.4-5.1) mmol/L Chloride (98-107) mmol/L Carbon Dioxide (22-32) mmol/L BUN (9-20) mg/dL Creatinine (0.66-1.25) mg/dL Estimated GFR (>60) mL/min BUN/Creatinine Ratio (6-22) Glucose (70-100) mg/dL Lactate (0.7-2.1) mmol/L Calcium (8.4-10.2) mg/dL Total Bilirubin (0.2-1.3) mg/dL AST (17-59) IU/L ALT (<50) IU/L Alkaline Phosphatase (38-126) U/L Total Protein (6.3-8.2) g/dL Albumin (3.5-5.0) g/dL Globulin (1.7-4.1) g/dL Albumin/Globulin Ratio (1.0-2.8) Procalcitonin (<0.5) ng/mL Urine RBC (0-5/HPF) Urine WBC (0-5/HPF) Urine Bacteria (None) Ur Culture Indicated? SARS-CoV-2 (PCR) Negative (Negative) Influenza A (RT-PCR) Flu a negative (NEGATIVE) Influenza B (RT-PCR) Flu b negative (NEGATIVE) RSV (PCR) Negative (Negative) Discharge Plan Departure Patient Disposition: Home Clinical Impression: Pneumonia, Sepsis Instructions: DI for Pneumonia -- Adult Activity Restrictions/Additional Instructions: You were evaluated in the ED today for a fever, abdominal pain, blood in the urine. You were given some IV antibiotics and fluids since your fever and WBC was high on arrival to the ED. The chest x-ray shows a right lower lung pneumonia, which is likely causing your symptoms. The CT abdomen pelvis did not show any acute findings. You are being prescribed an antibiotic for the pneumonia. Please complete the full course of antibiotics as prescribed. Please follow-up with your primary care doctor tomorrow as scheduled for monitoring of the pneumonia as well as follow-up on the blood in the urine. Return to the ED if you have any chest pain or trouble breathing. Prescriptions: New azithromycin [Zithromax Z-Lele] 250 mg tablet See Rx Instructions .ROUTE .COMPLEX Qty: 6 0RF Rx Instructions: For 250 mg dose pack: take 500 mg today (day 1), then 250 mg for 4 days (days 2-5) No Action ondansetron 4 mg tablet,disintegrating 4 mg PO BID PRN (Reason: nausea and vomiting) Qty: 10 0RF methocarbamol 500 mg tablet See Rx Instructions PO Q6-8H PRN (Reason: muscle spasm) Qty: 40 0RF Rx Instructions: 2-3 tablets PO every 6-8 hours PRN; BIOTIN/CA/CA PANTOTHENATE/CR (#CENTRUM) 1 tab PO QDAY Qty: 0 Vitamin E Succinate (#VITAMIN E) 100 iu PO QDAY Qty: 0 methylprednisolone 4 MG tablets,dose pack 21 tab PO SEE INSTRUCTIONS Qty: 1 0RF methocarbamol 500 mg tablet 500 mg PO Q8H PRN (Reason: muscle spasm) Qty: 20 0RF Referrals: Fabian Hayden MD [Primary Care Provider] - Stand Alone Forms: Patient Portal/API <Yun Alonso MD - Last Filed: 07/20/22 01:46> Cosign ED Attending Cosignature Attestation: I was immediately available in the department for consultation throughout this patient's visit. Yun Alonso MD
[2022-07-19 19:02] LABS: Procalcitonin 0.08 ng/mL (<0.5)
--- NOTE | 2022-07-19 19:09 | PC.NURSE ---
handoff report given to Sania Bobby RN
[2022-07-19 19:29] LABS: Influenza A - CEPHEID Flu A NEGATIVE (NEGATIVE); Influenza B - CEPHEID Flu B NEGATIVE (NEGATIVE); Respiratory Syncytial Virus Negative (Negative)
[2022-07-19 19:30] LABS: COVID-19 CEPHEID 4-PLEX PCR Negative (Negative)
[2022-07-19 19:36] LABS: INR 1.3 (0.9-1.3); Prothrombin Time 14.9 SECONDS (10.1-12.7)
[2022-07-19 19:39] LABS: PTT Partial Thromboplastin Tim 29 SECONDS (26-36)
--- NOTE | 2022-07-19 20:19 | P.CONS_ITS ---
History of Present Illness Consult details Date Patient Seen: 07/19/22 Time Patient Seen: 19:45 Chief complaint: sent by [facility] for blood in urine Narrative: Mr. Myers is a 57M with PMH hernia who presents to the hospital with fever, abdominal pain, diarrhea and hematuria. He has had waxing and waning fever over the past few days. He has no sick contacts. He has had a mild cough. He has had diarrhea once a day. He denies chest pain, shortness of breath, rhinorrhea, sore throat, vomiting, dysuria. He has no vomiting. In the ED workup was done he was noted to be febrile to 103, respiratory rate 15-16, sats 96%, heart rate in the 60-70s. I have reviewed labs and notable for WBC 12.7, plts 130. Na 132, BUN 17, creatinine 1.12. UA showed RBCs. Lactate 1.0. Procal 0.08. COVID negative. flu negative. RSV negative. Chest xray showed right basilar opacity. CT abdomen/pelvis showed small opacity in right lung base consistent with pneumonia. He was ordered for antibiotics and fluids and felt much improved. Meds Home Medications and Allergies Home Medications Medication Instructions Recorded Confirmed Type BIOTIN/CA/CA PANTOTHENATE/CR 1 tab PO QDAY ##0 02/28/11 04/27/21 History (#CENTRUM) Vitamin E Succinate (#VITAMIN E) 100 iu PO QDAY ##0 02/28/11 04/27/21 History methylprednisolone 4 mg tablets in 21 tab PO SEE INSTRUCTIONS ##1 02/07/17 04/27/21 Rx a dose pack ondansetron 4 mg disintegrating 4 mg PO BID PRN nausea and 12/02/18 04/27/21 Rx tablet vomiting #10 tabs methocarbamol 500 mg tablet See Rx Instructions PO Q6-8H PRN 04/17/21 04/27/21 Rx muscle spasm #40 tabs methocarbamol 500 mg tablet 500 mg PO Q8H PRN muscle spasm #20 04/22/21 04/27/21 Rx tabs azithromycin 250 mg tablet See Rx Instructions PO .COMPLEX #6 07/19/22 Rx (Zithromax Z-Lele) tabs Allergies Allergy/AdvReac Type Severity Reaction Status Date / Time No Known Drug Allergies Allergy Verified 07/19/22 16:35 Review of Systems Review of Systems Narrative: 14 systems reviewed and negative aside from what is noted in HPI Exam Vital Signs (past 8 hours): - 07/19/22 16:35 07/19/22 16:42 07/19/22 17:40 Temperature 103.1 F H 103.1 F H 102.7 F H Pulse Rate 74 Respiratory Rate 15 Blood Pressure 159/92 H Pulse Oximetry 95 Oxygen Delivery Method Room Air 07/19/22 17:37 07/19/22 18:00 07/19/22 19:02 Temperature 99 F Pulse Rate 77 74 Respiratory Rate Blood Pressure Pulse Oximetry 97 96 Oxygen Delivery Method 07/19/22 18:43 07/19/22 18:44 07/19/22 18:44 Temperature Pulse Rate 65 67 Respiratory Rate Blood Pressure 100/61 Pulse Oximetry 98 98 Oxygen Delivery Method 07/19/22 19:00 07/19/22 19:00 Temperature Pulse Rate 65 Respiratory Rate Blood Pressure 108/68 Pulse Oximetry 96 Oxygen Delivery Method Oxygen Delivery Method Room Air Narrative Exam Narrative: GEN: no acute distress HEENT: moist mucous membranes, no JVD PERRL: trachea midline, no JVD PULM: clear bilaterally, no wheezes, rhonchi, rales CV: regular rate and rhythm, no murmurs ABD: soft, nontender, nondistended, no organomegaly EXT: warm and well perfused with no edema NEURO: awake, alert, oriented, no focal deficits Objective Labs 07/19/22 17:32 07/19/22 17:32 Labs: Laboratory Results - last 24 hr 07/19/22 07/19/22 07/19/22 16:12 17:32 17:32 WBC 12.7 H RBC 4.89 Hgb 15.5 Hct 44.0 MCV 89.9 MCH 31.7 MCHC 35.2 RDW 13.6 Plt Count 130 L Neut % (Auto) 79.6 H Lymph % (Auto) 10.7 L [place] % (Auto) 8.7 Eos % (Auto) 0.7 L Baso % (Auto) 0.3 Neut # (Auto) 50890 H Lymph # (Auto) 1400 [place] # (Auto) 1100 H Eos # (Auto) 100 Baso # (Auto) 0 PT INR APTT Sodium 132 L Potassium 3.9 Chloride 101 Carbon Dioxide 20 L BUN 17 Creatinine 1.12 Estimated GFR > 60 BUN/Creatinine Ratio 15.2 Glucose 130 H Lactate Calcium 9.2 Total Bilirubin 1.0 AST 26 ALT 27 Alkaline Phosphatase 64 Total Protein 8.4 H Albumin 4.4 Globulin 4.0 Albumin/Globulin Ratio 1.1 Procalcitonin Urine RBC 10-30/hpf H Urine WBC 0-1/hpf Urine Bacteria Occasional (0-1) Ur Culture Indicated? Cult not indicated SARS-CoV-2 (PCR) Influenza A (RT-PCR) Influenza B (RT-PCR) RSV (PCR) 07/19/22 07/19/22 07/19/22 17:32 17:32 17:32 WBC RBC Hgb Hct MCV MCH MCHC RDW Plt Count Neut % (Auto) Lymph % (Auto) [place] % (Auto) Eos % (Auto) Baso % (Auto) Neut # (Auto) Lymph # (Auto) [place] # (Auto) Eos # (Auto) Baso # (Auto) PT 14.9 H INR 1.3 APTT 29 Sodium Potassium Chloride Carbon Dioxide BUN Creatinine Estimated GFR BUN/Creatinine Ratio Glucose Lactate 1.0 Calcium Total Bilirubin AST ALT Alkaline Phosphatase Total Protein Albumin Globulin Albumin/Globulin Ratio Procalcitonin 0.08 Urine RBC Urine WBC Urine Bacteria Ur Culture Indicated? SARS-CoV-2 (PCR) Influenza A (RT-PCR) Influenza B (RT-PCR) RSV (PCR) 07/19/22 18:42 WBC RBC Hgb Hct MCV MCH MCHC RDW Plt Count Neut % (Auto) Lymph % (Auto) [place] % (Auto) Eos % (Auto) Baso % (Auto) Neut # (Auto) Lymph # (Auto) [place] # (Auto) Eos # (Auto) Baso # (Auto) PT INR APTT Sodium Potassium Chloride Carbon Dioxide BUN Creatinine Estimated GFR BUN/Creatinine Ratio Glucose Lactate Calcium Total Bilirubin AST ALT Alkaline Phosphatase Total Protein Albumin Globulin Albumin/Globulin Ratio Procalcitonin Urine RBC Urine WBC Urine Bacteria Ur Culture Indicated? SARS-CoV-2 (PCR) Negative Influenza A (RT-PCR) Flu a negative Influenza B (RT-PCR) Flu b negative RSV (PCR) Negative PFSH Medical History History of hepatitis HTN (hypertension) Surgical History Hx of appendectomy (1982) Social History household members: spouse Tobacco & Substance Use Smoking Status: Former smoker alcohol intake: current Assessment & Plan Assessment & Plan narrative: 1. Pneumonia, acute -initially febrile to 103, WBC was 12 -blood pressure normotensive, no tachycardia, no tachypnea, not requiring oxygen -CT showed small consolidation in right lung consistent with pneumonia -received antibiotics in the ED and IV fluids and feels very good -is tolerating diet, no nausea or vomiting -CURB 65 score of 0, PORT score of 56, low risk and severity -suspect patient will do well with outpatient treatment with antibiotics -encouraged patient to follow up with his PCP tomorrow on 07/20, which he says he can do 2. Hematuria -CT abdomen showed no acute source -etiology broad including passed kidney stone, bladder lesion -will need further follow up with PCP and if hematuria continues referral to urology, I encouraged him to follow up with his PCP tomorrow Patient was evaluated and felt well. He had low risk for severe pneumonia. He was wanting to go home. I think outpatient treatment with antibiotics is appropriate. He plans to follow up tomorrow with his PCP for the above medical issues.
== END 2022-07-19 20:31 | disposition home or self-care (01) ==
PROVIDERS: Emergency Medicine; Emergency Provider Student in an Organized Health Care Education/Training Program; Family Provider Family Medicine; PCP Family Medicine
DX: J18.9 Pneumonia, unspecified organism (principal); A41.9 Sepsis, unspecified organism; R50.9 Fever, unspecified; R31.9 Hematuria, unspecified; Z20.822 Contact with and (suspected) exposure to COVID-19; N39.0 Urinary tract infection, site not specified; J06.9 Acute upper respiratory infection, unspecified
CPT/HCPCS: 0241U; 36415; 71046; 74177; 80053; 81015; 83605; 84145; 85025; 85610; 85730; 87040; 87086; 96365; 96375; 99284; J1885; J2543; Q9967

== ENCOUNTER 2024-09-26 10:40 | Emergency (ER) | payer OTHER, SELFPAY ==
[2024-09-26] VITALS (41 sets, daily range): BP systolic 118–168; BP diastolic 68–104; PULSE 71–88; RESP 10–30; TEMP 36.3; O2SAT 94–99; BMI 31.6
--- NOTE | 2024-09-26 11:03 | DI.RAD.S_ITS ---
PROCEDURE: XR SOFT TISSUE NECK INDICATIONS: feels like pills stuck in airway, hoarse, took 90mins ago TECHNIQUE: 2 views of the neck were acquired. COMPARISON: None. FINDINGS: Airway: The airway appears patent. Soft tissues: Prevertebral soft tissues are normal in thickness. The epiglottis and aryepiglottic folds appear normal. No soft tissue gas. Bones: No suspicious bony lesions. Visualized cervical spine is normally aligned. IMPRESSION: No radiopaque foreign bodies are identified. Dictated by: Hugh Singh M.D. on 09/26/2024 at 11:29 Approved by: Hugh Singh M.D. on 09/26/2024 at 11:31
--- NOTE | 2024-09-26 11:03 | ED.SKABFB ---
HPI - Skin/Abscess/Foreign Bdy General Chief complaint: Skin/Abscess/Foreign Body Stated complaint: Took Meds and they are stuck in throat or lungs Time Seen by Provider: 09/26/24 11:02 Source: patient, RN notes reviewed and old records reviewed Mode of arrival: Ambulatory Limitations: no limitations History of Present Illness HPI narrative: 59-year-old male no reported medical issues who states he took about 10 [id number] vitamins and supplements about 90 minutes prior to arrival and feel like they got stuck in his throat or lungs. He states it has felt irritated, he has been worse with decrease in his voice. He states it feels a little bit better when he lays backwards. Walking around seemed to help it as well. He denies any chest pain or pressure. He did not try to make himself throw up some small amounts of vitamins, with this. States he has been handling his saliva and secretions. No syncope. No other nausea or vomiting. No other GI or urinary symptoms. No rash or skin changes. No swelling of the lips or tongue. No other allergic symptoms reported. Patient states it started immediately after he took them felt like they got stuck. He was not had similar symptoms in the past no issues with dysphagia. States no daily prescription medications. States prior appendectomy. Former smoker, occasional alcohol, no recreational drugs. Related Data Home Medications ?Medication ?Instructions ?Recorded ?Confirmed Vitamin E Succinate (#VITAMIN E) 100 iu PO QDAY ##0 02/28/11 06/26/24 Multivitamin PO 02/18/23 06/26/24 allopurinol 100 mg tablet 100 mg PO DAILY 10/25/23 06/26/24 ipratropium bromide 42 mcg (0.06 intranasal 10/25/23 06/26/24 %) nasal spray Previous Rx's ?Medication ?Instructions ?Recorded fluticasone propionate 50 1 spray intranasal Q12H #16 grams 10/07/23 mcg/actuation nasal spray,suspension (Flonase Allergy Relief) cefdinir 300 mg capsule 300 mg PO BID #14 caps 10/25/23 triamcinolone acetonide 0.5 % 1 applic topical TID #15 grams 06/26/24 topical cream epinephrine 0.3 mg/0.3 mL 0.3 mg (0.3 mL) IM Q5-15M PRN 09/26/24 injection, auto-injector (EpiPen) anaphylaxis #2 ea Allergies Allergy/AdvReac Type Severity Reaction Status Date / Time No Known Drug Allergies Allergy Verified 09/26/24 10:53 Review of Systems Review of Systems ROS Unobtainable: All systems reviewed & are unremarkable except as noted in HPI and below Patient History Medical History History of hepatitis HTN (hypertension) Surgical History Hx of appendectomy (1983) Social History household members: spouse alcohol intake: current alcohol intake frequency: a few times a month Exam Narrative Exam Narrative: GEN: well nourished, well appearing male, alert and oriented x 3, patient appears to be in moderate distress. HEENT: Atraumatic, pupils are equal round reactive to light, extraocular movements are intact, nares are clear, TMs are clear with no fluid, there is no conjunctival pallor. Throat is clear without any exudates, erythema, tonsillar enlargement or uvular deviation, no swelling of lips tongue or airway, patient's hoarse no appreciable stridor, swallowing secretions without issue patient is able to lay back at 30?. HEART: Regular rate and rhythm without murmur, clicks, rubs. Pulses are equal in upper and lower extremities LUNGS:Lungs clear to auscultation, no wheezes, rales, crackles, chest moves symmetrically ABD:bowel sounds normal, soft, non-tender, no guarding, rebound, rigidity, no masses noted, no hepatosplenomegaly MSCL: Non-tender, no muscle atrophy, muscles strength 5/5 upper and lower extremities, full range of motion, normal gait NEURO:CN 2-12 intact, sensation normal SKIN: No rash, erythema or other skin changes appreciated. Initial Vital Signs Initial Vital Signs: Vital Signs Temperature 97.4 F L 09/26/24 10:51 Pulse Rate 78 09/26/24 10:51 Respiratory Rate 22 09/26/24 10:51 Blood Pressure 125/104 H 09/26/24 10:51 Pulse Oximetry 97 09/26/24 10:51 Oxygen Delivery Method Room Air 09/26/24 10:51 Course Orders Ordered: Discontinued Medications Diphenhydramine HCl (Diphenhydramine 50 Mg/Ml Vial) 50 mg IV NOW ONE Stop: 09/26/24 11:03 Last Admin: 09/26/24 11:19 Dose: 50 mg Documented By: RB Epinephrine (Racepinephrine 0.5 Ml Neb) 0.5 ml INH NOW ONE Stop: 09/26/24 11:09 Last Admin: 09/26/24 11:19 Dose: 0.5 ml Documented By: RB Epinephrine HCl (Epinephrine 1 Mg/Ml) 0.5 mg IM NOW ONE Stop: 09/26/24 11:10 Last Admin: 09/26/24 11:20 Dose: 0.5 mg Documented By: RB Famotidine (Famotidine 20 Mg/2 Ml Vial) 20 mg IV NOW IDA Last Admin: 09/26/24 11:19 Dose: 20 mg Documented By: RB Sodium Chloride (Normal Saline 0.9%) 1,000 mls @ 1,000 mls/hr IV BOLUS ONE Stop: 09/26/24 12:01 Last Infusion: 09/26/24 12:30 Dose: Infused Documented By: Admin: 09/26/24 11:25 Dose: 1,000 mls/hr Documented By: RB Methylprednisolone (Methylprednisolone 125 Mg/2 Ml Vial) 125 mg IV NOW ONE Stop: 09/26/24 11:03 Last Admin: 09/26/24 11:19 Dose: 125 mg Documented By: RB Vital Signs Vital signs: Vital Signs - 8 hr 09/26/24 10:51 09/26/24 10:57 09/26/24 10:59 Temperature 97.4 F L Pulse Rate 78 79 Respiratory Rate 22 20 Blood Pressure 125/104 H 168/102 H Pulse Oximetry 97 97 Oxygen Delivery Method Room Air Room Air Oxygen Flow Rate Fraction of Inspired Oxygen 09/26/24 10:59 09/26/24 11:00 09/26/24 11:00 Temperature Pulse Rate 80 76 Respiratory Rate 16 16 Blood Pressure 138/91 H Pulse Oximetry 97 97 Oxygen Delivery Method Oxygen Flow Rate Fraction of Inspired Oxygen 09/26/24 11:19 09/26/24 11:30 09/26/24 11:30 Temperature Pulse Rate 80 82 Respiratory Rate 18 21 Blood Pressure 162/81 H Pulse Oximetry 98 95 Oxygen Delivery Method Room Air Oxygen Flow Rate Fraction of Inspired Oxygen 09/26/24 11:35 09/26/24 11:35 09/26/24 11:40 Temperature Pulse Rate 88 80 Respiratory Rate 10 L 10 L Blood Pressure 160/93 H Pulse Oximetry 97 98 Oxygen Delivery Method Oxygen Flow Rate Fraction of Inspired Oxygen 09/26/24 11:40 09/26/24 11:45 09/26/24 11:45 Temperature Pulse Rate 79 Respiratory Rate 16 Blood Pressure 165/97 H 164/91 H Pulse Oximetry 98 Oxygen Delivery Method Oxygen Flow Rate Fraction of Inspired Oxygen 09/26/24 11:50 09/26/24 11:50 09/26/24 11:55 Temperature Pulse Rate 74 74 Respiratory Rate 21 23 Blood Pressure 154/81 H Pulse Oximetry 98 97 Oxygen Delivery Method Oxygen Flow Rate Fraction of Inspired Oxygen 09/26/24 11:55 09/26/24 12:00 09/26/24 12:00 Temperature Pulse Rate 87 Respiratory Rate 30 H Blood Pressure 156/84 H 140/81 Pulse Oximetry Oxygen Delivery Method Oxygen Flow Rate Fraction of Inspired Oxygen 09/26/24 12:05 09/26/24 12:05 09/26/24 12:10 Temperature Pulse Rate 71 Respiratory Rate 20 Blood Pressure 158/88 H 155/79 H Pulse Oximetry 99 Oxygen Delivery Method Oxygen Flow Rate Fraction of Inspired Oxygen 09/26/24 12:10 09/26/24 12:13 09/26/24 12:33 Temperature Pulse Rate 78 84 71 Respiratory Rate 23 20 19 Blood Pressure Pulse Oximetry 99 99 98 Oxygen Delivery Method Room Air Aerosol Mask Oxygen Flow Rate 7 Fraction of Inspired Oxygen 21 09/26/24 12:33 09/26/24 12:35 09/26/24 12:35 Temperature Pulse Rate 71 Respiratory Rate Blood Pressure 145/78 H 145/70 H Pulse Oximetry 98 Oxygen Delivery Method Oxygen Flow Rate Fraction of Inspired Oxygen 09/26/24 12:40 09/26/24 12:40 09/26/24 12:45 Temperature Pulse Rate 71 Respiratory Rate 19 Blood Pressure 139/74 143/73 H Pulse Oximetry 94 Oxygen Delivery Method Oxygen Flow Rate Fraction of Inspired Oxygen 09/26/24 12:45 09/26/24 12:50 09/26/24 12:50 Temperature Pulse Rate 71 72 Respiratory Rate 19 17 Blood Pressure 135/75 Pulse Oximetry 96 95 Oxygen Delivery Method Oxygen Flow Rate Fraction of Inspired Oxygen 09/26/24 12:55 09/26/24 12:55 09/26/24 13:00 Temperature Pulse Rate 72 Respiratory Rate 19 Blood Pressure 130/73 126/68 Pulse Oximetry Oxygen Delivery Method Oxygen Flow Rate Fraction of Inspired Oxygen 09/26/24 13:00 09/26/24 13:05 09/26/24 13:05 Temperature Pulse Rate 76 81 Respiratory Rate 21 14 Blood Pressure 121/70 Pulse Oximetry Oxygen Delivery Method Oxygen Flow Rate Fraction of Inspired Oxygen 09/26/24 13:10 09/26/24 13:10 Temperature Pulse Rate 76 Respiratory Rate 19 Blood Pressure 126/72 Pulse Oximetry Oxygen Delivery Method Oxygen Flow Rate Fraction of Inspired Oxygen MDM - Skin/Abscess/Foreign Bdy Lab Data 09/26/24 10:58 09/26/24 10:25 Labs: Lab Results 09/26/24 09/26/24 Range/Units 10:25 10:58 WBC 4.8 (4.5-11.0) X10^3/uL RBC 4.56 (4.5-5.9) X10^6/uL Hgb 14.6 (13.5-17.5) g/dL Hct 42.4 (41-53) % MCV 92.8 (80-100) fL MCH 31.9 (26-34) PG MCHC 34.4 (30-36) % RDW 13.8 (11.6-14.8) % Plt Count 167 (150-400) X10^3/uL Neut % (Auto) 53.7 (50-75) % Lymph % (Auto) 34.4 (25-40) % [place] % (Auto) 6.0 (3-14) % Eos % (Auto) 5.3 H (2-4) % Baso % (Auto) 0.6 (0-2) % Neut # (Auto) 2600 (4243-6719) /uL Lymph # (Auto) 1700 (1350-8775) /uL [place] # (Auto) 300 (0-900) /uL Eos # (Auto) 300 (0-450) /uL Baso # (Auto) 0 (0-100) /uL Sodium 136 L (137-145) mmol/L Potassium 4.3 (3.4-5.1) mmol/L Chloride 102 (98-107) mmol/L Carbon Dioxide 23 (22-32) mmol/L BUN 25 H (9-20) mg/dL Creatinine 1.06 (0.66-1.25) mg/dL Estimated GFR > 60 (>60) mL/min BUN/Creatinine Ratio 23.6 H (6-22) Glucose 109 H (70-99) mg/dL Calcium 9.2 (8.4-10.2) mg/dL MDM Narrative Medical decision making narrative: 59-year-old male states he took his oral medications and felt like they got stuck in his throat he was slightly hoarse not stridorous but states symptoms seem a little bit worse. He feels like the pills or probably resolving and causing some irritation. On exam patient has hoarse, no muffled voice, does not appear to have any other clear allergic changes or angioedema he states maybe his face is swollen but he was not sure. Does seem that is symptoms most likely started exactly when he took medications and potential for being stuck in the upper airway. Seems less likely to be esophageal impaction as he has been tolerating secretions overall. Vital signs are stable. Labs show normal CBC, chemistries show a BUN 25 sodium 136 otherwise normal chemistries glucose of 109. Soft tissue neck x-ray shows no radiopaque foreign bodies identified. CT soft tissue neck shows no acute change. Angioedema, allergic reaction, foreign body in the airway all potentially in the differential. Was given medications including Pepcid, Benadryl, Solu-Medrol and epinephrine for potential anaphylaxis but may also help with any swelling or irritation. Spoke with Dr. Woodward at 03 06, would ask if we can try to get CT imaging. Discussed if patient is not able to lay flat to re-contact. Dr. Wright called and states he will come and evaluate the patient for scope. He was with ENT and was contacted by Dr. Woodward in his working locally. Rechecked after medications 1147 patient states he feels like there might be a little bit of improvement. 1157 rechecked patient continues to feel improved was laid flat discussed obtaining CT he was tolerating while he states he feels little bit more comfortable in that position. Patient continues to feel improved. Dr. Wright scope the patient here in the department did not find any residual changes no swelling or other changes on scope. Agrees with the plan for several days of steroids. Unclear exact source of his symptoms. Discussed with the patient angioedema versus anaphylaxis versus true foreign body but none visualized currently. Patient was feeling significantly better his speech is improved he feels comfortable returning home discussed angioedema and anaphylaxis with still be with the my differential and asked that he do not take any of his supplements tomorrow and then they could be potential source of his symptoms. We will also send with the EpiPen. Discharge Plan Departure Patient Disposition: Home Clinical Impression: Hoarseness Activity Restrictions/Additional Instructions: Your evaluation with the ENT, they looked with the scope did not find any foreign body, swelling or changes to the airway. Based on your symptoms it is possible that you had a small piece of pill but it is also possible that you may have developed some angioedema or swelling or allergic type reaction in that area. You received several medications to help with this. I would recommend not taking any of your supplements tomorrow in the future if you restart them do not take all of them at once. Prescription for short course of steroids was sent. Also included as prescription for an EpiPen I would keep this available at all times. Prescription sent to [facility] in [place]. Please return if you have recurrent symptoms, recurrent or worsening coarseness, increasing changes to voice, chest pain, shortness of breath swelling of lips tongue airway or face or other new or concerning changes. Prescriptions: New epinephrine [EpiPen] 0.3 mg/0.3 mL auto-injector 0.3 mg IM Q5-15M PRN (Reason: anaphylaxis) Qty: 2 0RF Rx Instructions: do not exceed 3 doses per episode No Action Multivitamin PO fluticasone propionate [Flonase Allergy Relief] 50 mcg/actuation spray,suspension 1 spray intranasal Q12H Qty: 16 0RF Rx Instructions: administer into each nostril ipratropium bromide 42 mcg (0.06 %) spray,non-aerosol intranasal allopurinol 100 mg tablet 100 mg PO DAILY cefdinir 300 mg capsule 300 mg PO BID Qty: 14 0RF triamcinolone acetonide 0.5 % cream 1 applic topical TID Qty: 15 0RF Vitamin E Succinate (#VITAMIN E) 100 iu PO QDAY Qty: 0 Referrals: Fabian Hayden MD [Primary Care Provider, Family Practice] Stand Alone Forms: Patient Portal/API
[2024-09-26 11:09] LABS: Add Manual Diff / Slide Review NO; Basophils Absolute Auto 0 /uL (0-100); Basophils Percent Auto 0.6 % (0-2); Eosinophils Absolute Auto 300 /uL (0-450); Eosinophils Percent Auto 5.3 % (2-4); Hematocrit 42.4 % (41-53); Hemoglobin 14.6 g/dL (13.5-17.5); Lymphocytes Absolute Auto 1700 /uL (1100-4500); Lymphocytes Percent Auto 34.4 % (25-40); Mean Corpuscular HGB Conc 34.4 % (30-36); Mean Corpuscular Hemoglobin 31.9 PG (26-34); Mean Corpuscular Volume 92.8 fL (80-100); Monocytes Absolute Auto 300 /uL (0-900); Neutrophils Absolute Auto 2600 /uL (1500-7000); Neutrophils Percent Auto 53.7 % (50-75); Platelet Count 167 X10^3/uL (150-400); Red Blood Cell Count 4.56 X10^6/uL (4.5-5.9); Red Cell Distribution Width 13.8 % (11.6-14.8); White Blood Cell Count 4.8 X10^3/uL (4.5-11.0)
[2024-09-26] MEDS: RACEPINEPHRINE 0.5 ML NEB INH (11:19)
[2024-09-26] MEDS: methylPREDNISolone 125 MG/2 ML VIAL IV (11:19)
[2024-09-26] MEDS: diphenhydrAMINE 50 MG/ML VIAL IV (11:19)
[2024-09-26] MEDS: FAMOTIDINE 20 MG/2 ML VIAL IV (11:19)
[2024-09-26] MEDS: EPINEPHrine 1 MG/ML 0.5 MG IM (11:20)
[2024-09-26 11:22] LABS: BUN Creatinine Ratio 23.6 (6-22); Blood Urea Nitrogen 25 mg/dL (9-20); Calcium 9.2 mg/dL (8.4-10.2); Carbon Dioxide 23 mmol/L (22-32); Chloride 102 mmol/L (98-107); Estimated Glomerular Filt Rate > 60 mL/min (>60); Glucose 109 mg/dL (70-99); HEMOLYSIS < 15 (0-50); Potassium 4.3 mmol/L (3.4-5.1); Sodium 136 mmol/L (137-145)
[2024-09-26] MEDS: SODIUM CHLORIDE 0.9% 1,000 ML 1000 ML IV (11:25)
--- NOTE | 2024-09-26 11:48 | DI.CT.S_ITS ---
PROCEDURE: CT SOFT TISSUE NECK W CON INDICATIONS: hoarseness, feels like pills stuck in airway TECHNIQUE: After the administration of intravenous contrast, 3.0 mm axial sections acquired from the sella to the aortic arch. Additional oblique axial 3.0 mm sections acquired through the pharynx. 3 mm thick coronal and sagittal reformats were generated. For radiation dose reduction, the following was used: automated exposure control. COMPARISON: None. FINDINGS: Image quality: Excellent. Lymph nodes: No enlarged lymph nodes seen throughout the neck. Vessels: Visualized vasculature appears patent. Neck spaces: The oropharynx, nasopharynx, and pharynx demonstrate no mucosal lesions. The vocal cords, false vocal cords, pyriform sinuses, epiglottis, vallecula, and tongue base all appear normal. Extramucosal spaces appear unremarkable. Glands: The parotid and submandibular glands appear normal. Thyroid gland demonstrates no significant abnormality. Miscellaneous: Visualized brain and orbits appear normal. Lung apices appear clear. Superficial soft tissues appear normal. Bones: No suspicious bony lesions. Visualized sinuses and mastoids appear unremarkable. IMPRESSION: No foreign bodies are identified. No acute findings within the neck. Dictated by: Hugh Singh M.D. on 09/26/2024 at 12:58 Approved by: Hugh Singh M.D. on 09/26/2024 at 13:01
--- NOTE | 2024-09-26 12:10 | RT ---
Called to bedside for sob of upper airway, at bedside and pt given neb tx of Epi follwed by cool aerosal mist at 21%. Pt states improvement noted, airway kit at bedside with glide scope, suction and bag mask unit on st.
--- NOTE | 2024-09-26 13:26 | PM.OP.1 ---
Operative Date/Time/Diagnoses Date of procedure: 09/26/24 Time of procedure: 13:15 Pre-op diagnosis: Acute airway obstruction, hoarseness, possible foreign body Post-op diagnosis: same (No evidence of foreign body) Procedure & Clinicians Procedure: Flexible laryngoscopy Same procedure as scheduled: Yes Indications: 59-year-old male swallows 10 vitamins and supplements approximately 8:00 a.m., though within 60 minutes the end feel throat swelling and airway obstruction. Concern for possible foreign body. Following discussion of the material risks benefits complications and alternatives, the patient elected to proceed with flexible laryngoscopy. Surgeon: Zeke Wright Click Yes if Unassisted: Yes Anesthesia Type: None Operative Notes Findings: Normal right nasal cavity nasopharynx base of tongue vallecula epiglottis piriform sinuses and normally mobile true vocal cords without lesion. There is subtle pale edema of the arytenoids only. No evidence of foreign body or inflammation or erythema. Applied: none Estimated Blood Loss (mL): 0 Procedure in detail: Following verbal consent, the lubricated flexible laryngoscope was passed through the right nostril with the above findings noted. Tolerated well without known complication. Complications: none Post-operative Condition: stable Plan for aftercare: Per ER provider, likely home on some oral steroids, avoid throat clearing, keep significant humidification to allow healing.
--- NOTE | 2024-09-26 13:29 | PM.CN ---
History of Present Illness Consult details Date Patient Seen: 09/26/24 Time Patient Seen: 13:15 Chief complaint: Took Meds and they are stuck in throat or lungs Reason for consult: Possible airway foreign body Requesting provider: Darlene Avila Narrative: 59-year-old male without similar prior problems with taking 10 vitamins and/or supplements at 8:00 a.m. this morning, within 60 minutes felt like his voice was changing and there was progressive airway obstruction with some pain. He presented to the emergency room, concerns for possible airway foreign body. It was treated for possible angioedema and several hours later does feel significantly improved, essentially aphonic previously. Soft tissue neck x-ray report was normal CT neck report was normal without evidence of foreign body. No chronic dysphagia in the past for other ENT complaints. Meds Home Medications and Allergies Home Medications ?Medication ?Instructions ?Recorded ?Confirmed ?Type Vitamin E Succinate (#VITAMIN E) 100 iu PO QDAY ##0 02/28/11 06/26/24 History Multivitamin PO 02/18/23 06/26/24 History fluticasone propionate 50 1 spray intranasal Q12H #16 grams 10/07/23 06/26/24 Rx mcg/actuation nasal spray,suspension (Flonase Allergy Relief) allopurinol 100 mg tablet 100 mg PO DAILY 10/25/23 06/26/24 History cefdinir 300 mg capsule 300 mg PO BID #14 caps 10/25/23 06/26/24 Rx ipratropium bromide 42 mcg (0.06 intranasal 10/25/23 06/26/24 History %) nasal spray triamcinolone acetonide 0.5 % 1 applic topical TID #15 grams 06/26/24 06/26/24 Rx topical cream Allergies Allergy/AdvReac Type Severity Reaction Status Date / Time No Known Drug Allergies Allergy Verified 09/26/24 10:53 Review of Systems Review of Systems Narrative: Negative except as listed in the HPI Exam Vital Signs (past 8 hours): - 09/26/24 10:51 09/26/24 10:57 09/26/24 10:59 Temperature 97.4 F L Pulse Rate 78 79 Respiratory Rate 22 20 Blood Pressure 125/104 H 168/102 H Pulse Oximetry 97 97 Oxygen Delivery Method Room Air Room Air Oxygen Flow Rate Fraction of Inspired Oxygen 09/26/24 10:59 09/26/24 11:00 09/26/24 11:00 Temperature Pulse Rate 80 76 Respiratory Rate 16 16 Blood Pressure 138/91 H Pulse Oximetry 97 97 Oxygen Delivery Method Oxygen Flow Rate Fraction of Inspired Oxygen 09/26/24 11:19 09/26/24 11:30 09/26/24 11:30 Temperature Pulse Rate 80 82 Respiratory Rate 18 21 Blood Pressure 162/81 H Pulse Oximetry 98 95 Oxygen Delivery Method Room Air Oxygen Flow Rate Fraction of Inspired Oxygen 09/26/24 11:35 09/26/24 11:35 09/26/24 11:40 Temperature Pulse Rate 88 80 Respiratory Rate 10 L 10 L Blood Pressure 160/93 H Pulse Oximetry 97 98 Oxygen Delivery Method Oxygen Flow Rate Fraction of Inspired Oxygen 09/26/24 11:40 09/26/24 11:45 09/26/24 11:45 Temperature Pulse Rate 79 Respiratory Rate 16 Blood Pressure 165/97 H 164/91 H Pulse Oximetry 98 Oxygen Delivery Method Oxygen Flow Rate Fraction of Inspired Oxygen 09/26/24 11:50 09/26/24 11:50 09/26/24 11:55 Temperature Pulse Rate 74 74 Respiratory Rate 21 23 Blood Pressure 154/81 H Pulse Oximetry 98 97 Oxygen Delivery Method Oxygen Flow Rate Fraction of Inspired Oxygen 09/26/24 11:55 09/26/24 12:00 09/26/24 12:00 Temperature Pulse Rate 87 Respiratory Rate 30 H Blood Pressure 156/84 H 140/81 Pulse Oximetry Oxygen Delivery Method Oxygen Flow Rate Fraction of Inspired Oxygen 09/26/24 12:05 09/26/24 12:05 09/26/24 12:10 Temperature Pulse Rate 71 Respiratory Rate 20 Blood Pressure 158/88 H 155/79 H Pulse Oximetry 99 Oxygen Delivery Method Oxygen Flow Rate Fraction of Inspired Oxygen 09/26/24 12:10 09/26/24 12:13 09/26/24 12:33 Temperature Pulse Rate 78 84 71 Respiratory Rate 23 20 19 Blood Pressure Pulse Oximetry 99 99 98 Oxygen Delivery Method Room Air Aerosol Mask Oxygen Flow Rate 7 Fraction of Inspired Oxygen 21 09/26/24 12:33 09/26/24 12:35 09/26/24 12:35 Temperature Pulse Rate 71 Respiratory Rate Blood Pressure 145/78 H 145/70 H Pulse Oximetry 98 Oxygen Delivery Method Oxygen Flow Rate Fraction of Inspired Oxygen 09/26/24 12:40 09/26/24 12:40 09/26/24 12:45 Temperature Pulse Rate 71 Respiratory Rate 19 Blood Pressure 139/74 143/73 H Pulse Oximetry 94 Oxygen Delivery Method Oxygen Flow Rate Fraction of Inspired Oxygen 09/26/24 12:45 09/26/24 12:50 09/26/24 12:50 Temperature Pulse Rate 71 72 Respiratory Rate 19 17 Blood Pressure 135/75 Pulse Oximetry 96 95 Oxygen Delivery Method Oxygen Flow Rate Fraction of Inspired Oxygen 09/26/24 12:55 09/26/24 12:55 09/26/24 13:00 Temperature Pulse Rate 72 Respiratory Rate 19 Blood Pressure 130/73 126/68 Pulse Oximetry Oxygen Delivery Method Oxygen Flow Rate Fraction of Inspired Oxygen 09/26/24 13:00 09/26/24 13:05 09/26/24 13:05 Temperature Pulse Rate 76 81 Respiratory Rate 21 14 Blood Pressure 121/70 Pulse Oximetry Oxygen Delivery Method Oxygen Flow Rate Fraction of Inspired Oxygen 09/26/24 13:10 09/26/24 13:10 Temperature Pulse Rate 76 Respiratory Rate 19 Blood Pressure 126/72 Pulse Oximetry Oxygen Delivery Method Oxygen Flow Rate Fraction of Inspired Oxygen Fraction of Inspired Oxygen 21 SaO2/FiO2 Ratio 471 Oxygen Delivery Method Room Air,Aerosol Mask Oxygen Flow Rate 7 Narrative Exam Narrative: Well-developed well-nourished male, slightly somnolent, hoarse voice but no stridor. He communicates appropriately. External ears normal. Nose externally is normal oral cavity is clear neck is soft and nontender no masses. Objective Labs 09/26/24 10:58 09/26/24 10:25 Labs: Laboratory Results - last 24 hr 09/26/24 09/26/24 10:25 10:58 WBC 4.8 RBC 4.56 Hgb 14.6 Hct 42.4 MCV 92.8 MCH 31.9 MCHC 34.4 RDW 13.8 Plt Count 167 Neut % (Auto) 53.7 Lymph % (Auto) 34.4 Camp % (Auto) 6.0 Eos % (Auto) 5.3 H Baso % (Auto) 0.6 Neut # (Auto) 2600 Lymph # (Auto) 1700 Camp # (Auto) 300 Eos # (Auto) 300 Baso # (Auto) 0 Sodium 136 L Potassium 4.3 Chloride 102 Carbon Dioxide 23 BUN 25 H Creatinine 1.06 Estimated GFR > 60 BUN/Creatinine Ratio 23.6 H Glucose 109 H Calcium 9.2 [facility] Medical History History of hepatitis HTN (hypertension) Surgical History Hx of appendectomy (1982) Social History household members: spouse Tobacco & Substance Use alcohol intake: current Assessment & Plan Assessment & Plan narrative: Assessment: Acute airway obstruction, hoarseness, dysphagia, throat pain. No current evidence of airway foreign body, may have related to irritation or temporary obstruction. Response to medication may indicate angioedema or similar as well. Plan: I agree with Dr. Gage, continue some oral steroids, avoid throat clearing, call if any worsening. Reassured no current evidence of foreign body. Time-Based Coding :: [TOTAL MINUTES] spent with patient and on the chart (including review of chart, obtaining history, exam, reviewing outside data, placing orders, documenting exam and treatment plan, and counseling patient) on [DATE].
== END 2024-09-26 14:45 | disposition home or self-care (01) ==
PROVIDERS: Emergency Provider Emergency Medicine; Family Provider Family Medicine; PCP Family Medicine
DX: R49.0 Dysphonia (principal)
CPT/HCPCS: 36415; 70360; 70491; 80048; 85025; 94640; 96361; 96372; 96374; 96375; 99284; J0171; J1200; J2919